=== PATIENT | female | born 2000 | race Two or more races ===

== ENCOUNTER 2020-11-18 10:13 | Outpatient (REF) | payer MEDICAID, SELFPAY | END 2020-11-18 10:14 | disposition home or self-care (01) | LOC: HO.LAB 10:13 | PROVIDERS: Visit Provider Internal Medicine | DX: Z20.822 Contact with and (suspected) exposure to COVID-19 (principal) | CPT/HCPCS: 36415; C9803; U0003; U0005 ==

== ENCOUNTER 2021-01-25 14:15 | Emergency (ER) | payer OTHER, SELFPAY ==
[2021-01-25 14:29] VITALS: BP 104/82; PULSE 99; O2SAT 99
[2021-01-25 14:57] VITALS: BP 116/61; PULSE 87; RESP 16; TEMP 36.7; O2SAT 98; BMI 25.8
--- NOTE | 2021-01-25 15:04 | ECG_ITS ---
Test Reason : ELECTRICAL SHOCK Blood Pressure : / mmHG Vent. Rate : 083 BPM Atrial Rate : 083 BPM P-R Int : 156 ms QRS Dur : 088 ms QT Int : 358 ms P-R-T Axes : 069 090 003 degrees QTc Int : 420 ms Normal sinus rhythm Rightward axis Nonspecific T wave abnormality Borderline ECG No previous ECGs available Referred By: Generic ED Physician Electronically Signed By:ALESSANDRO MEJIA
[2021-01-25 15:26] LABS: MANUAL DIFF FLAG NO
[2021-01-25 15:29] LABS: Basophils Absolute Auto 0.1 X10*3/uL (0.0-0.2); Basophils Percent Auto 0.6 % (0-2); Eosinophils Absolute Auto 0.1 X10*3/uL (0.0-0.4); Eosinophils Percent Auto 0.7 % (0-4); Hematocrit 42.5 % (37-47); Hemoglobin 13.6 g/dl (12.0-16.0); Imm Gran Abs Auto 0.01 X10*3/uL (0.00-0.03); Imm Gran Pct Auto 0.1 % (0.0-0.4); Lymphocytes Absolute Auto 2.5 X10*3/uL (1.2-4.9); Lymphocytes Percent Auto 24.8 % (20-40); Mean Corpuscular Hemoglobin 27.3 pg (27.0-33.0); Mean Corpuscular Volume 85.2 fL (80-98); Mean Platelet Volume 12.9 fL (9.4-12.3); Monocytes Absolute Auto 0.5 X10*3/uL (0.1-1.2); Monocytes Percent Auto 5.3 % (2-11); Neutrophils Absolute Auto 6.9 X10*3/uL (2.0-8.3); Neutrophils Percent Auto 68.5 % (45-73); Platelet Count 213 X10*3/uL (160-400); Red Blood Count 4.99 X10*6/uL (4.20-5.50); Red Cell Distribution Width 12.7 % (11.0-16.0); White Blood Count 10.1 X10*3/uL (4.8-10.8)
[2021-01-25 15:56] LABS: Anion Gap 12 (12-20); Blood Urea Nitrogen 11 mg/dL (9-16); Calcium 9.7 mg/dL (8.4-10.2); Carbon Dioxide 28 mmol/L (22-29); Chloride 103 mmol/L (96-108); Creatinine Clr Calc Pharmacy 130.4; Estimated Glomerular Filt Rate > 60; Glucose Random 82 mg/dL (60-115); Potassium 4.2 mmol/L (3.3-5.1); Sodium 139 mmol/L (135-145)
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
[2021-01-25 16:55] VITALS: BP 107/63; PULSE 88; O2SAT 100
== END 2021-01-25 17:04 | disposition home or self-care (01) ==
PROVIDERS: Emergency Provider Emergency Medicine; PCP Internal Medicine
DX: T25.121A Burn of first degree of right foot, initial encounter (principal); W86.0XXA Exposure to domestic wiring and appliances, initial encounter; Y93.9 Activity, unspecified; Y92.039 Unspecified place in apartment as the place of occurrence of the external cause; Y99.9 Unspecified external cause status
CPT/HCPCS: 36415; 80048; 85025; 93005; 99283

== ENCOUNTER 2021-05-24 17:52 | Emergency (ER) | payer OTHER, SELFPAY ==
--- NOTE | ~2021-05-24 | US_ITS ---
EXAMINATION: US PELVIS, LIMITED/FOLLOW UP CLINICAL INFORMATION: IUD placement COMPARISON: Pelvic ultrasound 10/03/2019 TECHNIQUE: Both transabdominal endovaginal scanning was performed FINDINGS: An retroverted uterus measuring 6.5 x 2.7 x 3.7 cm is present. And IUD is present in the endometrial cavity and good position. The endometrium, where it can be measured is 0.3 cm in thickness and normal. The right ovary measures 3.7 x 1.7 x 1.5 cm for a volume of 5.0 mL and appears normal with normal follicles. Left ovary measures 3.0 x 1.2 x 1.7 cm for a volume of 3.2 mL and also appears normal with normal follicles. No free fluid is seen. US/US pelvic limited IMPRESSION: IUD is in normal position within the uterus.
[2021-05-24 19:48] VITALS: BP 131/77; PULSE 81; RESP 16; TEMP 36.7; O2SAT 100; BMI 25.8
[2021-05-24 20:20] LABS: Basophils Absolute Auto 0.1 X10*3/uL (0.0-0.2); Basophils Percent Auto 0.6 % (0-2); Eosinophils Absolute Auto 0.1 X10*3/uL (0.0-0.4); Eosinophils Percent Auto 0.8 % (0-4); Hematocrit 40.6 % (37-47); Hemoglobin 12.7 g/dl (12.0-16.0); Imm Gran Abs Auto 0.02 X10*3/uL (0.00-0.03); Imm Gran Pct Auto 0.2 % (0.0-0.4); Lymphocytes Absolute Auto 3.3 X10*3/uL (1.2-4.9); Lymphocytes Percent Auto 29.3 % (20-40); MANUAL DIFF FLAG NO; Mean Corpuscular HGB Conc 31.3 g/dl (31.0-35.0); Mean Corpuscular Hemoglobin 26.8 pg (27.0-33.0); Mean Corpuscular Volume 85.7 fL (80-98); Mean Platelet Volume 11.6 fL (9.4-12.3); Monocytes Absolute Auto 0.6 X10*3/uL (0.1-1.2); Monocytes Percent Auto 5.5 % (2-11); Neutrophils Absolute Auto 7.1 X10*3/uL (2.0-8.3); Neutrophils Percent Auto 63.6 % (45-73); Platelet Count 245 X10*3/uL (160-400); Red Blood Count 4.74 X10*6/uL (4.20-5.50); Red Cell Distribution Width 12.8 % (11.0-16.0); White Blood Count 11.2 X10*3/uL (4.8-10.8)
[2021-05-24 20:22] LABS: Appearance Urine CLOUDY; Color Urine YELLOW; Glucose Urine UA NEG (NEG); Leukocyte Esterase Urine NEG (NEG); Nitrite Urine NEG (NEG); UACC Culture Trigger NO; Urine Blood 2+ (NEG); Urine Ketones NEG (NEG); Urine Protein NEG (NEG-TRACE)
[2021-05-24 20:30] LABS: Amorphous Sediment Urine 1+ /LPF; Bacteria Urine 1+ /LPF; Mucus Urine TRACE /LPF; Squamous Epithelial Cell Urine 2+ /LPF; WBC Urine 0 /HPF (0-4)
[2021-05-24 20:35] LABS: Anion Gap 13 (12-20); Blood Urea Nitrogen 13 mg/dL (9-16); Calcium 9.4 mg/dL (8.4-10.2); Carbon Dioxide 27 mmol/L (22-29); Chloride 106 mmol/L (96-108); Creatinine Clr Calc Pharmacy 123.3; Estimated Glomerular Filt Rate > 60; Glucose Random 59 mg/dL (60-115); Sodium 142 mmol/L (135-145)
[2021-05-24 21:07] VITALS: BP 118/69; PULSE 81; RESP 17; TEMP 36.6; O2SAT 100
--- NOTE | 2021-05-24 21:08 | PC.NURSE ---
patient a&ox3, vss, patient awaiting provider, repeat bs 80, will continue to monitor
[2021-05-24 21:13] LABS: Glucose, Whole Blood 80 mg/dL (60-115)
[2021-05-24 22:11] LABS: UPreg QC Valid YES; Urine Pregnancy NEGATIVE (NEGATIVE)
--- NOTE | 2021-05-24 22:45 | PC.NURSE ---
THIS PCT SET UP AND ASSIST PA CORBIN WITH PATIENT PELVIC EXAM .
--- NOTE | 2021-05-24 22:52 | ED.FEMALEGU ---
HPI - Female Genitourinary General Chief complaint: Vaginal Bleeding Stated complaint: vag bleeding Time Seen by Provider: 05/24/21 21:12 Source: patient Mode of arrival: ambulatory Limitations: no limitations History of Present Illness HPI Narrative: 20-year-old female here with complaints of acute on chronic pelvic pain with vaginal bleeding. Patient is without she has had this for about 1-2 months. She describes the pain as bilateral. She tells me that she has spotting which is intermittent. No nausea, vomiting, urinary symptoms. She is having some white discharge. She is sexually active with 1 male partner. She does not use condoms. She denies any history of pelvic inflammatory disease. Denies any history of STDs. Related Data Previous Rx's Medication Instructions Recorded silver sulfadiazine 1 % topical 1 appl TOPICAL BID #50 g 01/25/21 cream (Silvadene) doxycycline monohydrate 100 mg 100 mg PO BID #14 tab 05/24/21 tablet Allergies Allergy/AdvReac Type Severity Reaction Status Date / Time No Known Allergies Allergy Verified 05/24/21 19:56 [No Known Allergies*] Review of Systems Review of Systems: Yes all other systems are reviewed and are negative Constitutional: Constitutional: Reports no additional constitutional complaints, Denies body ache(s), Denies chills, Denies fever(s), Denies headache(s) and Denies weakness Eyes: Eyes: Reports no additional eye complaints and Denies change in vision ENT: Reports system reviewed and no additional complaints, except as documented, Denies dizziness, Denies headache(s), Denies nasal congestion, Denies nasal discharge and Denies neck pain Cardiovascular: Cardiovascular: Reports no additional cardiovascular complaints, Denies chest pain, Denies leg edema and Denies dyspnea Respiratory: Respiratory: Reports no additional respiratory complaints, Denies cough and Denies dyspnea Gastrointestinal: Gastrointestinal: Reports no additional gastrointestinal complaints, Denies abdominal pain, Denies diarrhea, Denies nausea and Denies vomiting Genitourinary: Genitourinary: Reports no additional female genitourinary complaints, Reports abnormal menses, Reports pelvic pain and Denies urinary incontinence Musculoskeletal: Musculoskeletal: Reports no additional musculoskeletal complaints, Denies back pain, Denies arthralgias, Denies joint swelling, Denies neck pain, Denies numbness and Denies tingling Integumentary/Breasts: Skin/Breast: Reports system reviewed and no additional complaints, except as docu and Denies rash Neurologic: Reports system reviewed and no additional complaints, except as documented, Denies Abnormal speech present, Denies dizziness, Denies headache(s), Denies numbness, Denies tingling and Denies weakness PMFSH Past Medical History Attestation statement: The following information was validated with the patient. Source: old records reviewed and nursing notes reviewed Medical History No known health problems Social History Social History Alcohol intake: never Patient Tobacco Use Status: Never used Tobacco Use of substances other than those prescribed or required for medical reasons: No Advance Directives: No Advance Directives Information Provided: Yes Patient : No Physical Exam Vital Signs: Vital Signs: Last Vital Signs Temp 97.9 F 05/24/21 21:07 Pulse 81 05/24/21 21:07 Resp 17 05/24/21 21:07 BP 118/69 05/24/21 21:07 Pulse Ox 100 05/24/21 21:07 Body Mass Index 25.8 Const: General: cooperative, healthy appearing, comfortable and no acute distress Orientation/consciousness: patient oriented x3 Limitations: no limitations HENMT: Head: Yes normal to inspection Ears: hearing grossly normal bilaterally General nose exam: Normal external nose present Face and sinus: Yes normal facial exam Mouth: Normal oral and palatal mucosa present Throat: Yes posterior oropharynx normal Eyes: General: appearance normal, both eyes and all related structures Pupils: Equal, round and reactive pupils present Neck: Neck: Yes normal visual inspection Chest: Chest palpation & inspection: normal inspection of the chest Resp: Effort & Inspection: normal respiratory effort Auscultation: clear to auscultation bilaterally Cardio: Rate: regular rate Rhythm: regular rhythm Peripheral pulses: Peripheral pulses 2+ throughout GI: Inspection: Yes normal to inspection Palpation (GI): Soft to palpation and Tenderness to palpation present (GI) (Suprapubic tenderness on exam no rebound or guarding) Auscultation: normal bowel sounds : Other: nerupa tech present External Female Exam: normal external appearance Speculum Exam - Vagina: normal appearance of the vagina and normal vaginal discharge Speculum Exam - Cervix: normal appearance of the cervix (IUD strings noted ) Bimanual exam- vagina & uterus: normal bimanual exam Bimanual Exam- Adnexa, other: normal adnexae Back/Spine/Pelvis: Thoracic/Lumbar Spine: thoracic and lumbar spine normal to inspection Skin: General skin exam: no rashes or lesions noted Neuro: General: patient oriented x3, no focal motor deficits and normal sensation to monofilament Cranial nerves: Yes Equal, round and reactive pupils present Cognition (Neuro): normal cognition Speech: No Abnormal speech present Gait exam (Neuro): Normal gait present Motor exam (neuro): 5/5 motor strength present throughout Extrem: General: Yes normal to inspection Course Course Course Narrative: 18-year-old female here with intermittent pelvic pain with spotting for the last 1-2 months. Will need UA, urine , pelvic US, labs, pelvic exam 0005-labs unremarkable. Urine is negative. Pelvic ultrasound shows IUD in place. Pelvic exam shows some mild amount of vaginal discharge. No adnexal tenderness or cervical motion tenderness. Less likely PID. Will give ceftriaxone 500 mg IM, course of doxycycline x7 days. Reviewed worrisome signs and symptoms of when to return to the emergency department. Comfortable discharge home. MDM - Female Genitourinary Medical Records Attestation: I reviewed the patient's medical records. Lab Data Attestation: I reviewed the patient's lab results. Result diagrams: 05/24/21 20:14 05/24/21 20:14 Labs: Lab Results 05/24/21 05/24/21 05/24/21 Range/Units 20:11 20:14 20:14 WBC 11.2 H (4.8-10.8) X10*3/uL RBC 4.74 (4.20-5.50) X10*6/uL Hgb 12.7 (12.0-16.0) g/dl Hct 40.6 (37-47) % MCV 85.7 (80-98) fL MCH 26.8 L (27.0-33.0) pg MCHC 31.3 (31.0-35.0) g/dl RDW 12.8 (11.0-16.0) % Plt Count 245 (160-400) X10*3/uL MPV 11.6 (9.4-12.3) fL Immature Gran % (Auto) 0.2 (0.0-0.4) % Neut % (Auto) 63.6 (45-73) % Lymph % (Auto) 29.3 (20-40) % [place] % (Auto) 5.5 (2-11) % Eos % (Auto) 0.8 (0-4) % Baso % (Auto) 0.6 (0-2) % Lymph # (Auto) 3.3 (1.2-4.9) X10*3/uL [place] # (Auto) 0.6 (0.1-1.2) X10*3/uL Eos # (Auto) 0.1 (0.0-0.4) X10*3/uL Baso # (Auto) 0.1 (0.0-0.2) X10*3/uL Abs Immat Gran (auto) 0.02 (0.00-0.03) X10*3/uL Absolute Neuts (auto) 7.1 (2.0-8.3) X10*3/uL Absolute Nucleated RBC 0.000 (0.0-0.012) X10*3/uL Nucleated RBC % (auto) 0.0 (0.0-0.2) /100WBC Sodium 142 (135-145) mmol/L Potassium 4.0 (3.3-5.1) mmol/L Chloride 106 (96-108) mmol/L Carbon Dioxide 27 (22-29) mmol/L Anion Gap 13 (12-20) BUN 13 (9-16) mg/dL Creatinine 0.73 (0.5-1.4) mg/dL Estim Creat Clear Calc 123.3 Estimated GFR > 60 POC Glucose (60-115) mg/dL Random Glucose 59 L* (60-115) mg/dL Calcium 9.4 (8.4-10.2) mg/dL Urine Color YELLOW Urine Appearance CLOUDY Urine pH 8.0 (5.0-8.0) Ur Specific [place] 1.020 (1.005-1.025) Urine Protein NEG (NEG-TRACE) MG/DL Urine Glucose (UA) NEG (NEG) MG/DL Urine Ketones NEG (NEG) MG/DL Urine Blood 2+ H (NEG) Urine Nitrite NEG (NEG) Ur Leukocyte Esterase NEG (NEG) Urine RBC 5-9 H (0) /HPF Urine WBC 0 (0-4) /HPF Ur Squamous Epith Cells 2+ /LPF Amorphous Sediment 1+ /LPF Urine Bacteria 1+ /LPF Urine Mucus TRACE /LPF Urine Test (NEGATIVE) 05/24/21 05/24/21 Range/Units 21:05 21:59 WBC (4.8-10.8) X10*3/uL RBC (4.20-5.50) X10*6/uL Hgb (12.0-16.0) g/dl Hct (37-47) % MCV (80-98) fL MCH (27.0-33.0) pg MCHC (31.0-35.0) g/dl RDW (11.0-16.0) % Plt Count (160-400) X10*3/uL MPV (9.4-12.3) fL Immature Gran % (Auto) (0.0-0.4) % Neut % (Auto) (45-73) % Lymph % (Auto) (20-40) % [place] % (Auto) (2-11) % Eos % (Auto) (0-4) % Baso % (Auto) (0-2) % Lymph # (Auto) (1.2-4.9) X10*3/uL [place] # (Auto) (0.1-1.2) X10*3/uL Eos # (Auto) (0.0-0.4) X10*3/uL Baso # (Auto) (0.0-0.2) X10*3/uL Abs Immat Gran (auto) (0.00-0.03) X10*3/uL Absolute Neuts (auto) (2.0-8.3) X10*3/uL Absolute Nucleated RBC (0.0-0.012) X10*3/uL Nucleated RBC % (auto) (0.0-0.2) /100WBC Sodium (135-145) mmol/L Potassium (3.3-5.1) mmol/L Chloride (96-108) mmol/L Carbon Dioxide (22-29) mmol/L Anion Gap (12-20) BUN (9-16) mg/dL Creatinine (0.5-1.4) mg/dL Estim Creat Clear Calc Estimated GFR POC Glucose 80 (60-115) mg/dL Random Glucose (60-115) mg/dL Calcium (8.4-10.2) mg/dL Urine Color Urine Appearance Urine pH (5.0-8.0) Ur Specific [place] (1.005-1.025) Urine Protein (NEG-TRACE) MG/DL Urine Glucose (UA) (NEG) MG/DL Urine Ketones (NEG) MG/DL Urine Blood (NEG) Urine Nitrite (NEG) Ur Leukocyte Esterase (NEG) Urine RBC (0) /HPF Urine WBC (0-4) /HPF Ur Squamous Epith Cells /LPF Amorphous Sediment /LPF Urine Bacteria /LPF Urine Mucus /LPF Urine Test NEGATIVE (NEGATIVE) Imaging Data US - abdomen: Attestation: I personally reviewed and interpreted this imaging study as follows: Radiologist's impression: FINDINGS: An retroverted uterus measuring 6.5 x 2.7 x 3.7 cm is present. And IUD is present in the endometrial cavity and good position. The endometrium, where it can be measured is 0.3 cm in thickness and normal. The right ovary measures 3.7 x 1.7 x 1.5 cm for a volume of 5.0 mL and appears normal with normal follicles. Left ovary measures 3.0 x 1.2 x 1.7 cm for a volume of 3.2 mL and also appears normal with normal follicles. No free fluid is seen. US/US pelvic limited IMPRESSION: IUD is in normal position within the uterus.? ? Discharge Plan Discharge Clinical Impression: Dysfunctional uterine bleeding Patient Disposition: Home, Self-Care Instructions: Dysfunctional Uterine Bleeding (ED) Additional Instructions: Your IUD is in place We sent STD testing. You are being treated prophylactically Lab work is normal Urine test is negative for Call obstetrics/gynecology nurse for repeat exam Prescriptions: New doxycycline monohydrate 100 mg tablet 100 mg PO BID Qty: 14 RF: 0 No Action silver sulfadiazine [Silvadene] 1 % cream 1 appl topical BID Qty: 50 RF: 0 Referrals: Santhosh Prajapati MD [Physician] - 2 days Stand Alone Forms: Work/School Release Print Language: Haitian
[2021-05-25] MEDS: cefTRIAXone sodium 500 MG, Lidocaine HCl 1 % MPF 1 ML IM (00:30)
[2021-05-25 00:32] VITALS: BP 111/69; PULSE 75; RESP 18; TEMP 36.9; O2SAT 100
[2021-05-25 09:51] LABS: BV Int Neg Control Negative (Negative); BV Int Pos Control Positive (Positive)
[2021-05-25 09:52] LABS: CT PCR NOT DETECTED (Not Detect.); NG PCR NOT DETECTED (Not Detect.)
== END 2021-05-25 00:43 | disposition home or self-care (01) ==
PROVIDERS: Nurse Practitioner Family; Emergency Provider Emergency Medicine Emergency Medical Services; PCP Internal Medicine
DX: N76.0 Acute vaginitis (principal); N93.8 Other specified abnormal uterine and vaginal bleeding; Z79.899 Other long term (current) drug therapy; Z20.2 Contact with and (suspected) exposure to infections with a predominantly sexual mode of transmission
CPT/HCPCS: 36415; 76857; 80048; 81001; 81025; 82947; 85025; 87480; 87491; 87510; 87591; 87660; 96372; 99284; J0696

== ENCOUNTER 2022-03-23 07:59 | Emergency (ER) | payer OTHER, SELFPAY ==
[2022-03-23 08:13] VITALS: BP 127/70; PULSE 95; RESP 18; TEMP 37.1; O2SAT 98; BMI 29.0
[2022-03-23 08:31] LABS: Strep A Nucleic Acid Negative (Negative)
[2022-03-23 08:44] LABS: COVID-19 Test Negative (Negative)
--- NOTE | 2022-03-23 10:47 | ED.GENADULT ---
HPI - General Adult General Chief complaint: General Medical Stated complaint: throat pain fever nausea Time Seen by Provider: 03/23/22 09:16 Source: patient Mode of arrival: ambulatory History of Present Illness HPI narrative: 21-year-old female with no significant past medical history presenting to the ED complaining of subjective fever, chills, myalgias/body aches, and sore throat x4 days. Reports pain with swallowing. Denies cough, ear pain, abdominal pain, nausea/vomiting, SOB/CP. Traveled to [place] last month Onset (ago): day(s) Related Data Previous Rx's Medication Instructions Recorded silver sulfadiazine 1 % topical 1 appl topical BID #50 grams 01/25/21 cream (Silvadene) doxycycline monohydrate 100 mg 100 mg PO BID #14 tabs 05/24/21 tablet metronidazole 500 mg tablet 500 mg PO BID 7 days #14 tabs 05/27/21 amoxicillin 875 mg-potassium 1 tab PO BID 7 days #14 tabs 03/23/22 clavulanate 125 mg tablet Allergies Allergy/AdvReac Type Severity Reaction Status Date / Time No Known Allergies Allergy Verified 05/24/21 19:56 [No Known Allergies*] Review of Systems Review of Systems: Constitutional: + Fever, + Chills ENT/Mouth: No Ear Pain, No Nasal Congestion, No Sinus Pain, No Hoarseness, + sore throat, No Rhinorrhea, No Swallowing Difficulty Cardiovascular: No Chest Pain, No SOB Respiratory: No Cough, No Sputum, No Wheezing Gastrointestinal: No Nausea, No Vomiting, No Diarrhea, No Constipation, No Abdominal pain Genitourinary: No Dysuria, No Urinary Frequency, No Hematuria, No Flank Pain Musculoskeletal: No joint pain, + Myalgias, No Joint Swelling Skin: No Skin Lesions, No rash Neuro: No Weakness, No Numbness, No Paresthesias Yes all other systems are reviewed and are negative Constitutional: Constitutional: Reports as per [facility] Past Medical History Attestation statement: The following information was validated with the patient. Medical History No known health problems Social History Social History Alcohol intake: never Patient Tobacco Use Status: Never used Tobacco Advance Directives: No Advance Directives Information Provided: Yes Physical Exam ED Vital Signs: Vital Signs - 24 hr 03/23/22 08:13 Temperature 98.7 F Pulse Rate 95 Respiratory Rate 18 Blood Pressure 127/70 Pulse Oximetry 98 Oxygen Delivery Method Room Air BMI result Body Mass Index 29.0 Const General: cooperative, healthy appearing and no acute distress Orientation/consciousness: patient oriented x3 Limitations: no limitations HENMT Head: Yes normal to inspection and Yes atraumatic Ears: hearing grossly normal bilaterally, TM's normal bilaterally and mastoids normal General nose exam: Normal external nose present Face and sinus: Yes normal facial exam Throat: Yes uvula midline, No peritonsillar mass, Yes posterior oropharynx abnormal (+ erythematous with small erythematous papules to posterior oropharynx), No uvula laterally displaced and No uvular edema Eyes General: appearance normal, both eyes and all related structures EOM: EOMs intact bilaterally Neck Other: + submandibular lymphadenopathy Neck: Yes normal visual inspection, Yes no meningeal signs, Yes supple and No anterior neck swelling Resp Effort & Inspection: normal respiratory effort, no respiratory distress and no stridor Auscultation: clear to auscultation bilaterally Cardio Rate: regular rate Heart sounds: S1 normal heart sound present and S2 normal heart sound present Skin Rashes: no rashes Wounds: no wounds Neuro General: patient oriented x3, tone normal and no meningeal signs Gait exam (Neuro): Normal gait present Extrem General: Yes normal to inspection Course Course Course Narrative: COVID-19 and rapid strep negative. >> will treat empirically with p.o. antibiotics due to symptomatology/physical exam. Patient is in agreement with plan Medical Decision Making MDM Narrative Medical decision making narrative: 21-year-old female with no significant past medical history presenting to the ED complaining of subjective fever, chills, myalgias/body aches, and sore throat x4 days. On exam vital signs stable, NAD, nontoxic appearing, physical exam as above. Concern for strep pharyngitis vs viral syndrome. 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 Lab Data Lab results reviewed: Yes I reviewed the patient's lab results. Labs: Lab Results 03/23/22 03/23/22 Range/Units 08:15 08:15 COVID-19 (SEKOU) Negative (Negative) COVID-19 Clin Com See Note S. pyogenes GrpA GREG Negative (Negative) Discharge Plan Discharge Clinical Impression: Pharyngitis Patient Disposition: Home, Self-Care Instructions: Pharyngitis (ED) Additional Instructions: You have a throat infection, Augmentin is an antibiotic please take as prescribed. you tested negative for COVID-19 and strep throat today. Gargle with warm salt water. Take Tylenol and Motrin at home as needed. If symptoms persist or worsen, you fever unresolved medications return to the emergency department Tiene emerita infecci?n de garganta, Augmentin es un antibi?manuel, t?jolley seg?n lo prescrito. milana negativo para COVID-19 y faringitis estreptoc?cica hoy. [place] g?rgaras con agua tibia con woo. [place] Tylenol y Motrin en casa seg?n sea necesario. Si los s?ntomas persisten o empeoran, tiene fiebre medicamentos no resueltos regrese al departamento de emergencias Prescriptions: New amoxicillin-pot clavulanate 875-125 mg tablet 1 tab PO BID 7 Days Qty: 14 0RF No Action silver sulfadiazine [Silvadene] 1 % cream 1 appl topical BID Qty: 50 0RF Rx Instructions: apply a 1.5 mm thickness doxycycline monohydrate 100 mg tablet 100 mg PO BID Qty: 14 0RF metronidazole 500 mg tablet 500 mg PO BID 7 Days Qty: 14 0RF Referrals: Sveta Ortzi MD [Primary Care Provider] - 1 week Interventions: ED Discharge Assessment Last Done: 03/23/22 11:00 Discharge Date/Time: 03/23/22 11:01 Print Language: Samoan
== END 2022-03-23 11:01 | disposition home or self-care (01) ==
PROVIDERS: Emergency Provider Emergency Medicine Emergency Medical Services; PCP Internal Medicine
DX: J02.9 Acute pharyngitis, unspecified (principal); Z20.822 Contact with and (suspected) exposure to COVID-19
CPT/HCPCS: 36415; 87635; 87651; 99283

== ENCOUNTER 2022-08-09 13:46 | Emergency (ER) | payer OTHER, SELFPAY ==
--- NOTE | ~2022-08-09 | CT_ITS ---
EXAMINATION: CT ABDOMEN AND PELVIS WITHOUT CONTRAST CLINICAL INFORMATION: Right flank pain COMPARISON: None TECHNIQUE: Multidetector volumetric imaging was performed from the superior aspect of the liver through the pubic symphysis. Sagittal and coronal reformatted images were obtained on the technologist's workstation. This CT examination was performed using dose optimization techniques as appropriate, variously including the following: *Automated exposure control *Adjustment of mA and/or kV according to patient size (this includes techniques or standardized protocols for targeted exams where dose is matched to indication/reason for exam; i.e. extremities or head) *Use of iterative reconstruction technique DLP: 551 mGy-cm FINDINGS: LUNG BASES: The visualized lung bases are unremarkable. LIVER, GALLBLADDER, AND BILIARY TREE: There are a few punctate calcifications in segment 6 of the liver of doubtful clinical significance. These may represent calcified granulomas although are uncertain etiology. The gallbladder is unremarkable with no evidence of radiopaque gallstones, gallbladder wall thickening, or obvious pericholecystic inflammatory changes. PANCREAS: Unremarkable. SPLEEN: Unremarkable. ADRENAL GLANDS: Unremarkable. KIDNEYS AND URETERS: The kidneys are normal in size, shape, and attenuation. No hydronephrosis, hydroureter, or calculi seen. No perinephric stranding. BLADDER: Unremarkable. GASTROINTESTINAL TRACT: The small and large bowel are unremarkable. The appendix is unremarkable. ABDOMINAL WALL: No significant hernia is appreciated. LYMPH NODES: Normal. VASCULAR: Unremarkable. PELVIC VISCERA: There is an intrauterine device. OSSEOUS STRUCTURES: Unremarkable. CT/CT abdomen pelvis wo IV con IMPRESSION: No focal inflammatory process or obstruction. Normal appendix. No hydronephrosis or nephrolithiasis. Fleischner guidelines were followed.
[2022-08-09 15:36] VITALS: BP 103/75; PULSE 88; RESP 18; TEMP 36.4; O2SAT 99; BMI 26.6
--- NOTE | 2022-08-09 15:42 | ED_ITS ---
HPI - Abdominal Pain General Chief Complaint: Abdominal Pain Stated Complaint: Flu Like Symptoms Related Data Previous Rx's Medication Instructions Recorded silver sulfadiazine 1 % topical 1 appl topical BID #50 grams 01/25/21 cream (Silvadene) doxycycline monohydrate 100 mg 100 mg PO BID #14 tabs 05/24/21 tablet metronidazole 500 mg tablet 500 mg PO BID 7 days #14 tabs 05/27/21 amoxicillin 875 mg-potassium 1 tab PO BID 7 days #14 tabs 03/23/22 clavulanate 125 mg tablet Allergies Allergy/AdvReac Type Severity Reaction Status Date / Time No Known Allergies Allergy Verified 08/09/22 15:35 [No Known Allergies*] FOR[facility]LY [facility] Past Medical History Medical History No known health problems Social History Social History Alcohol intake: never Patient Tobacco Use Status: Never used Tobacco Advance Directives: No Advance Directives Information Provided: Yes Physical Exam ED Vital Signs: Vital Signs - 24 hr 08/09/22 15:36 Temperature 97.5 F Pulse Rate 88 Respiratory Rate 18 Blood Pressure 103/75 Pulse Oximetry 99 Oxygen Delivery Method Room Air BMI result Body Mass Index 26.6 Course Course Course Narrative: rme patient is a 21-year-old female present today with having 1 week history of some nausea some diarrhea some generalized malaise now is having abdominal pain on the right side radiating to the right flank. Patient denies any fever chills. No history kidney stones in the past. Positive mild headache. Positive weakness. A RSV flu COVID was sent. Urine ordered. test ordered. CT scan of the abdomen to rule out kidney stone ordered. Patient placed back in the waiting room Discharge Plan Discharge Clinical Impression: Abdominal pain Patient Disposition: Elopement Prescriptions: No Action silver sulfadiazine [Silvadene] 1 % cream 1 appl topical BID Qty: 50 0RF Rx Instructions: apply a 1.5 mm thickness doxycycline monohydrate 100 mg tablet 100 mg PO BID Qty: 14 0RF metronidazole 500 mg tablet 500 mg PO BID 7 Days Qty: 14 0RF amoxicillin-pot clavulanate 875-125 mg tablet 1 tab PO BID 7 Days Qty: 14 0RF Interventions: ED Discharge Assessment Last Done: 08/09/22 21:35 Discharge Date/Time: 08/09/22 21:36
[2022-08-09 16:28] LABS: MANUAL DIFF FLAG NO
[2022-08-09 16:31] LABS: Basophils Percent Auto 0.5 % (0-2); Eosinophils Percent Auto 0.4 % (0-4); Hematocrit 42.4 % (37.0-47.0); Hemoglobin 13.5 g/dl (12.0-16.0); Imm Gran Abs Auto 0.02 X10*3/uL (0.00-0.03); Imm Gran Pct Auto 0.2 % (0.0-0.4); Lymphocytes Absolute Auto 2.1 X10*3/uL (1.2-4.9); Lymphocytes Percent Auto 24.8 % (20-40); Mean Corpuscular HGB Conc 31.8 g/dl (31.0-35.0); Mean Corpuscular Hemoglobin 26.3 pg (27.0-33.0); Mean Corpuscular Volume 82.7 fL (80.0-98.0); Mean Platelet Volume 11.7 fL (9.4-12.3); Monocytes Absolute Auto 0.4 X10*3/uL (0.1-1.2); Neutrophils Absolute Auto 5.8 x10*3/uL (2.0-8.3); Neutrophils Percent Auto 69.1 % (45-73); Platelet Count 240 X10*3/uL (160-400); Red Blood Count 5.13 X10*6/uL (4.20-5.50); Red Cell Distribution Width 12.5 % (11.0-16.0); White Blood Count 8.4 X10*3/uL (4.8-10.8)
[2022-08-09 16:38] LABS: Appearance Urine Clear; Color Urine Dark Yellow; Glucose Urine UA Negative (Negative); Leukocyte Esterase Urine Negative (Negative); Nitrite Urine Negative (Negative); Specific Gravity - Urine >= 1.030 (1.005-1.025); UMIC TRIGGER UACC YES; UPreg QC Valid YES; Urine Blood Negative (Negative); Urine Ketones 15 mg/dL (Negative); Urine Pregnancy NEGATIVE (NEGATIVE); Urine Protein 30 (1+) mg/dL (Neg-Trace)
[2022-08-09 16:44] LABS: Bacteria Urine Trace (None Seen); Hyaline Casts Urine 0-2 /LPF (0-2); RBC Urine 0-2 /HPF (0-2); UACC Culture Trigger YES
[2022-08-09 16:48] LABS: Alanine Aminotransferase 17 U/L (0-31); Albumin Level 4.3 g/dL (3.5-5.0); Alkaline Phosphatase 81 U/L (39-117); Anion Gap 10 (12-20); Aspartate Amino Transferase 16 U/L (5-31); Bilirubin Direct 0.2 mg/dL (0.0-0.5); Bilirubin Total 0.5 mg/dL (0.0-1.0); Blood Urea Nitrogen 10 mg/dL (9-16); Carbon Dioxide 30 mmol/L (22-29); Chloride 105 mmol/L (96-108); Creatinine Clr Calc Pharmacy 122.4; Estimated Glomerular Filt Rate > 60; Glucose Random 93 mg/dL (60-115); Lipase 15 U/L (8-78); Sodium 141 mmol/L (135-145); Total Protein 7.6 g/dL (6.5-8.0)
[2022-08-09 17:09] LABS: Influenza A PCR NEGATIVE (Negative); Influenza B PCR NEGATIVE (Negative); Resp Syncy Virus RNA Qual PCR NEGATIVE (Negative); SARS COV2 PCR INHOUSE NEGATIVE (Negative)
== END 2022-08-09 21:36 | disposition left against medical advice (07) ==
PROVIDERS: Emergency Medicine Emergency Medical Services; Emergency Provider Emergency Medicine; PCP Internal Medicine
DX: R50.9 Fever, unspecified (principal); R10.9 Unspecified abdominal pain; Z79.899 Other long term (current) drug therapy; Z20.822 Contact with and (suspected) exposure to COVID-19
CPT/HCPCS: 0241U; 36415; 74176; 80048; 80076; 81001; 81025; 83690; 85025; 87086; 99282; 99284

== ENCOUNTER 2024-06-03 08:38 | Emergency (ER) | payer OTHER, SELFPAY ==
[2024-06-03 08:42] VITALS: BP 112/67; PULSE 85; RESP 18; TEMP 36.8; O2SAT 97; BMI 30.4
[2024-06-03 09:21] LABS: COVID-19 Test Negative (Negative); IDNOW Serial# 08D9AD1C
--- NOTE | 2024-06-03 10:02 | ED.GENADULT ---
HPI - General Adult General Chief complaint: Upper Respiratory Symptoms Stated complaint: flu symptons Time Seen by Provider: 06/03/24 09:34 Source: patient Mode of arrival: ambulatory Limitations: no limitations History of Present Illness ED Provider: Lester Tolliver PA-C HPI narrative: 23-year-old female no past medical history presents to the ED for URI symptoms consists of diarrhea, coughing, fever, chills, body aches, and nausea. Denies any abdominal pain. Patient denies any dysuria, hematuria, flank pain, shortness of breath, pleurisy, coughing up blood. Patient states having symptoms for the past 4 days. Related Data Previous Rx's ?Medication ?Instructions ?Recorded silver sulfadiazine 1 % topical 1 appl topical BID #50 grams 01/25/21 cream (Silvadene) doxycycline monohydrate 100 mg 100 mg PO BID #14 tabs 05/24/21 tablet metronidazole 500 mg tablet 500 mg PO BID 7 days #14 tabs 05/27/21 amoxicillin 875 mg-potassium 1 tab PO BID 7 days #14 tabs 03/23/22 clavulanate 125 mg tablet benzonatate 200 mg capsule 200 mg PO TID PRN cough 5 days #15 06/03/24 caps Allergies Allergy/AdvReac Type Severity Reaction Status Date / Time No Known Allergies Allergy Verified 06/03/24 08:43 [No Known Allergies*] Review of Systems Review of Systems: cough, diarrhea, nuasea, bodyaches, fever, chills Yes all other systems are reviewed and are negative PMFSH Past Medical History Medical History No known health problems Social History Social History Alcohol intake: never Patient Tobacco Use Status: Never used Tobacco Advance Directives: No Do you have a plan to hurt others: No Plan Physical Exam ED Vital Signs: Vital Signs - 24 hr 06/03/24 08:42 06/03/24 10:40 Temperature 98.2 F 98.2 F Pulse Rate 85 85 Respiratory Rate 18 18 Blood Pressure 112/67 112/67 Pulse Oximetry 97 97 Oxygen Delivery Method Room Air Room Air BMI result Body Mass Index 30.4 Const General: cooperative, healthy appearing, comfortable, no acute distress, well developed, alert, awake and Physically active Orientation/consciousness: patient oriented x3 [facility] Head: Yes normal to inspection, Yes No palpable skull fracture present, Yes normocephalic and Yes atraumatic Ears: hearing grossly normal bilaterally, external ears normal, TM's normal bilaterally, TM normal on the right, TM normal on the left, EAC's normal, mastoids normal and no periauricular adenopathy Throat: Yes posterior oropharynx normal, Yes tonsils normal and Yes uvula midline Eyes General: appearance normal, both eyes and all related structures Neck Neck: Yes normal visual inspection, Yes full ROM, Yes no lymphadenopathy, Yes no meningeal signs, Yes trachea midline, Yes supple, No anterior neck swelling and No tender Chest Chest palpation & inspection: normal inspection of the chest and normal palpation of entire chest wall Resp Effort & Inspection: normal respiratory effort and able to speak in complete sentences Auscultation: clear to auscultation bilaterally Cardio Jugular venous distension: no JVD Heart sounds: S1 normal heart sound present and S2 normal heart sound present GI Inspection: Yes normal to inspection Palpation (GI): Soft to palpation, not firm, nontender, no guarding and not rigid General: No CVA tenderness and Yes no CVA tenderness Back/Spine/Pelvis Back: no CVA tenderness, No CVA tenderness and No back tenderness Skin General skin exam: no rashes or lesions noted, elasticity normal and turgor normal Neuro General: patient oriented x3, gait normal, tone normal, moves all extremities, Normal light touch and pain sensation, no meningeal signs, no focal motor deficits, CN's II-XI intact bilaterally and normal sensation to monofilament Extrem General: Yes normal to inspection, Yes full ROM and Yes capillary refill normal Psych Appearance: grossly normal, well kempt and not disheveled Medical Decision Making Medical Decision Making MDM Narrative: 23-year-old female healthy with no past medical history presents to ED for URI viral-like syndrome. COVID-19 swab negative. It was discussed for patient to test for RSV and flu but patient would prefer to go home. Presently not suspecting pneumonia, , PE, hypoxia, respiratory distress, myocardial infarction, chf, myocarditis, appendicitis, UTI, colitis, pancreatitis, cholecysititis or strep. patient denies being . Patient explained on rest, oral hydration. Patient was explained worrisome signs and informed to return to the ED immediately if she has them. Presently patient is stable and not hypoxic. Patient well-appearing. Differential Diagnosis Differential Diagnoses: The differential diagnosis associated with the presentation includes (COVID, RSV, influenza) Admission/Observation Consideration of admission/observation: Escalation of care including admission/observation considered Lab Data MDM Lab Attestation statement: I reviewed the patient's lab results. Labs: Lab Results 06/03/24 Range/Units 08:58 COVID-19 ([facility]) Negative (Negative) COVID-19 Clin Com See Note Independent Historian Clinical information obtained from an independent historian. History obtained from or confirmed by: Other (patient) External Record Review External record reviewed: Other (prior visits) Prescription Management I considered prescription management with: Other (cough) Discharge Plan Discharge Clinical Impression: Upper respiratory infection Patient Disposition: Home, Self-Care Instructions: Upper Respiratory Infection (ED) Additional Instructions: Return to the ED immediately for any chest pain, shortness of breath, leg swelling, calf pain, chest pain on inspiration intractable fever, weakness, dizziness, coughing up large amounts of blood, abdominal pain, dysuria, hematuria, flank pain, intractable nausea, profuse vomiting, or any other concerning symptoms. Recommend follow-up with primary care provider Prescriptions: New benzonatate 200 mg capsule 200 mg PO TID PRN (Reason: cough) 5 Days Qty: 15 0RF No Action silver sulfadiazine [Silvadene] 1 % cream 1 appl topical BID Qty: 50 0RF Rx Instructions: apply a 1.5 mm thickness doxycycline monohydrate 100 mg tablet 100 mg PO BID Qty: 14 0RF metronidazole 500 mg tablet 500 mg PO BID 7 Days Qty: 14 0RF amoxicillin-pot clavulanate 875-125 mg tablet 1 tab PO BID 7 Days Qty: 14 0RF Stand Alone Forms: Work/School Release Interventions: ED Discharge Assessment Last Done: 06/03/24 10:40 Discharge Date/Time: 06/03/24 10:40 Print Language: Lithuanian
[2024-06-03 10:40] VITALS: BP 112/67; PULSE 85; RESP 18; TEMP 36.8; O2SAT 97
== END 2024-06-03 10:40 | disposition home or self-care (01) ==
PROVIDERS: Emergency Provider Emergency Medicine; PCP Internal Medicine
DX: J06.9 Acute upper respiratory infection, unspecified (principal); R05.9 Cough, unspecified; Z11.52 Encounter for screening for COVID-19
CPT/HCPCS: 87635; 99282; 99283

== ENCOUNTER 2024-07-16 13:00 | Outpatient (AMB) | payer OTHER, SELFPAY ==
[2024-07-16 13:12] VITALS: BP 116/68; BMI 30.9
--- NOTE | 2024-07-16 13:12 | MHC.OFFVIS ---
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 After she had her baby in 2018 at [facility] she moved to [place] for couple of years and now she is back but she has not been in for curatorial assistant examined at lose 6 years she had a Mirena inserted sometime soon after her baby was born in 2018 and she is sexually active but she is not interested in having another baby at this time. She breastfed that baby girl for about 3-4 years. [facility] Medical History No known health problems Social History Alcohol intake: never Patient Tobacco Use Status: Never used Tobacco Female Reproductive History Menstrual Age of Menarche: 12 Duration of menses: other control method: progestin IUCD Total pregnancies: 1 Full term: 1 History of abnormal pap smear: No (no previous pap) Physical Exam Vital Signs: Last Vital Signs BP 116/68 07/16/24 13:12 BMI result Body Mass Index 30.9 Const General: healthy appearing, comfortable, no acute distress, well developed and alert Nutritional Appearance: average body habitus Orientation/consciousness: patient oriented x3 Limitations: no limitations HEENT Head: Yes normocephalic Neck Neck: Yes normal visual inspection Chest Chest palpation & inspection: normal inspection of the chest Breast/axilla inspection: normal inspection of the breasts and normal inspection of the axillae Breast/axilla palpation: normal palpation of the breasts and normal palpation of the axillae Resp Effort & Inspection: normal respiratory effort GI Inspection: Yes normal to inspection, No Abdominal wall edema and No distended Palpation (GI): Soft to palpation and nontender Other: External exam within normal limits vagina pink and moist there is a white homogeneous liquidy discharge Cervix multiparous pink smooth with Mirena string visible. Cervix is long close thick mobile firm uterus small midposition to anteverted firm mobile nontender. Adnexa nontender Fairly weak tone with Kegel instructed and had her practice 3 successful Kegel's and recommend that she do them multiple times a day at home. General: Yes bladder normal to palpation External Female Exam: normal external appearance and normal appearance of the urethra Speculum Exam - Vagina: normal appearance of the vagina, normal palpation and normal vaginal discharge Speculum Exam - Cervix: normal appearance of the cervix, normal palpation and nontender Bimanual exam- vagina & uterus: normal bimanual exam, normal palpation, uterine size normal, bladder normal to palpation, consistency normal, normal palpation, uterine mobility normal, uterine shape normal, No Cervical tenderness present, non-tender and no cervical motion tenderness Bimanual Exam- Adnexa, other: normal adnexae, no masses, normal and No adnexal tenderness Neuro General: patient oriented x3 Assessment & Plan Assessment & Plan (1) Cervical cancer screening: Code(s): Z12.4 - Encounter for screening for malignant neoplasm of cervix Category: Medical (2) Encounter for screening examination for sexually transmitted disease: Code(s): Z11.3 - Encounter for screening for infections with a predominantly sexual mode of transmission Category: Medical (3) Breast cancer screening: Code(s): Z12.39 - Encounter for other screening for malignant neoplasm of breast Category: Medical (4) control counseling: Code(s): Z30.09 - Encounter for other general counseling and advice on contraception Category: Medical (5) Presence of 52 mg levonorgestrel-releasing intrauterine device (IUD): Code(s): Z97.5 - Presence of (intrauterine) contraceptive device Category: Social Hx (6) Well woman exam with routine gynecological exam: Code(s): Z01.419 - Encounter for gynecological examination (general) (routine) without abnormal findings Category: Medical (7) Pelvic floor 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 Also discussed the initial recommendations to use the Mirena IUD for contraception for up to 5 years. Some recent studies are indicating that it can be used for longer and there are current recommendations saying it can be left for longer period of time when used for contraception, up to 8 years and it can be used for 5 years when it is being used to help control abnormal bleeding. However, many women, whose periods went away for the 1st few years of having the Mirena, have reported that around 4-1/2-5 years into its use, they have noticed return of full menses, and return of ovulatory signs and symptoms midcycle. This varies from women to woman. In addition women who have had it to help control bleeding, have had amenorrhea for very many years and sometimes have opted to leave it in longer if they are still not bleeding, when they are not concerned about contraception. I recommend the she pay attention to how the effects are acting on her own body, and cycles, and always take care to be aware of this. And if she is using it for contraception, and the consequences of conceiving would be great for her, she would be nielson to pay attention to this, and not depend on it, if she has a return to fertility. And if she desires replacement, she should return for replacement at the appropriate time. After discussing the variable length of time that can be used as above and that it is her decision if she really is very clear she does not want to have another baby now she changed her mind and decided that she actually would like to replace it now so she is sure she does not have a baby by accident in the near future. She is not getting regular periods but occasionally she does spot and cramp like. If she does have that experience that would be an optimal time to replace it as it will be less uncomfortable but her cervix is not tightly closed and probably would not be too difficult removal and insertion process. Given that she is not getting regular menses yet she may need to just call when it is convenient to her but I did tell her that if she gets some spotting or cramping that is an ideal time and we would wanted try to schedule replacement for the next day. Orders: Orders Hepatitis B Surface Antigen Today Z01.419 - Encounter for gynecological examination (general) (routine) without abnormal findings, Z11.3 - Encounter for screening for infections with a predominantly sexual mode of transmission, Z12.39 - Encounter for other screening for malignant neoplasm of breast, Z12.4 - Encounter for screening for malignant neoplasm of cervix, Z30.09 - Encounter for other general counseling and advice on contraception, Z97.5 - Presence of (intrauterine) contraceptive device Hepatitis C Antibody Today Z01.419 - Encounter for gynecological examination (general) (routine) without abnormal findings, Z11.3 - Encounter for screening for infections with a predominantly sexual mode of transmission, Z12.39 - Encounter for other screening for malignant neoplasm of breast, Z12.4 - Encounter for screening for malignant neoplasm of cervix, Z30.09 - Encounter for other general counseling and advice on contraception, Z97.5 - Presence of (intrauterine) contraceptive device HIV Ab/Ag Today Z01.419 - Encounter for gynecological examination (general) (routine) without abnormal findings, Z11.3 - Encounter for screening for infections with a predominantly sexual mode of transmission, Z12.39 - Encounter for other screening for malignant neoplasm of breast, Z12.4 - Encounter for screening for malignant neoplasm of cervix, Z30.09 - Encounter for other general counseling and advice on contraception, Z97.5 - Presence of (intrauterine) contraceptive device Syphilis Screen Today Z01.419 - Encounter for gynecological examination (general) (routine) without abnormal findings, Z11.3 - Encounter for screening for infections with a predominantly sexual mode of transmission, Z12.39 - Encounter for other screening for malignant neoplasm of breast, Z12.4 - Encounter for screening for malignant neoplasm of cervix, Z30.09 - Encounter for other general counseling and advice on contraception, Z97.5 - Presence of (intrauterine) contraceptive device Medications: Discontinued silver sulfadiazine 1% (Silvadene) apply a 1.5 mm thickness Discontinued Reason: Patient Completed Course 1 appl topical BID 50 grams 0RF doxycycline monohydrate Discontinued Reason: Patient Completed Course 100 mg PO BID 14 tabs 0RF metronidazole Discontinued Reason: Patient Completed Course 500 mg PO BID 7 days 14 tabs 0RF amoxicillin-pot clavulanate 875-125 mg Discontinued Reason: Patient Completed Course 1 tab PO BID 7 days 14 tabs 0RF benzonatate Discontinued Reason: Patient Completed Course 200 mg PO TID 5 days PRN 15 caps 0RF cough Coding Level of Care Code New Pt Prev Care [id number] Diagnoses Cervical cancer screening Z12.4 Encounter for screening examination for sexually transmitted disease Z11.3 Breast cancer screening Z12.39 control counseling Z30.09 Presence of 52 mg levonorgestrel-releasing intrauterine device (IUD) Z97.5 Well woman exam with routine gynecological exam Z01.419 Pelvic floor weakness in female N81.89
== END 2024-07-16 14:06 | disposition home or self-care (01) ==
PROVIDERS: PCP Internal Medicine; Visit Provider Advanced Practice Midwife
DX: Z01.419 Encounter for gynecological examination (general) (routine) without abnormal findings (principal); Z12.4 Encounter for screening for malignant neoplasm of cervix; Z11.3 Encounter for screening for infections with a predominantly sexual mode of transmission; Z12.39 Encounter for other screening for malignant neoplasm of breast; Z30.09 Encounter for other general counseling and advice on contraception; Z97.5 Presence of (intrauterine) contraceptive device; N81.89 Other female genital prolapse
CPT/HCPCS: 99385

== ENCOUNTER 2024-07-16 13:00 | Outpatient (REF) | payer OTHER, SELFPAY ==
[2024-07-17 04:10] LABS: CT PCR DETECTED (Not Detect.); NG PCR NOT DETECTED (Not Detect.)
[2024-07-17 12:05] LABS: Bacterial Vaginosis PCR NEGATIVE (Negative); Candida Group PCR DETECTED (Not Detect); Candida glab krusei PCR NOT DETECTED (Not Detect); Trichomonas vaginalis PCR NOT DETECTED (Not Detect)
== END 2024-07-16 13:01 | disposition home or self-care (01) ==
LOC: HO.LAB 13:00
PROVIDERS: PCP Internal Medicine; Visit Provider Advanced Practice Midwife
DX: Z01.419 Encounter for gynecological examination (general) (routine) without abnormal findings (principal); N89.8 Other specified noninflammatory disorders of vagina; Z20.2 Contact with and (suspected) exposure to infections with a predominantly sexual mode of transmission
CPT/HCPCS: 0352U; 87491; 87591; 99385

== ENCOUNTER 2024-07-16 15:43 | Outpatient (REF) | payer OTHER, SELFPAY | END 2024-07-16 15:44 | disposition home or self-care (01) | LOC: HO.LNP 15:43 | PROVIDERS: Visit Provider Advanced Practice Midwife | DX: Z01.419 Encounter for gynecological examination (general) (routine) without abnormal findings (principal); N89.8 Other specified noninflammatory disorders of vagina | CPT/HCPCS: 88175 ==

== ENCOUNTER 2024-10-01 12:52 | Outpatient (AMB) | payer OTHER, SELFPAY ==
--- NOTE | 2024-10-01 13:15 | A.OFFVIS_ITS ---
Vital Signs 10/01/24 13:16 Height 5 ft 5 in Weight 182 lb BMI 30.3 BP 112/62 Intake Visit Reasons: Mirena removal and insertion Lay Out Inspector Services: Lay Out Inspector Present Information Interpreted: clinical only Director Building: Director Building Present Allergies No Known Allergies [No Known Allergies*] Allergy (Verified 10/01/24 13:18) Medication List - Last Reconciled 10/01/24 by Laura Ruelas CNM levonorgestrel (Mirena) intrauterine HPI HPI Mirena removal and insertion: Details: Patient is here scheduled for a Mirena removal and insertion. However with review of the last visit noted that she had positive chlamydia diagnosed at that visit I prescribed the medication however the nurses were arm able to reach her despite several attempts and the patient also says she did not get the letter about her negative Pap smear. Patient did not know about the positive chlamydia she is tearful today as I have disclose this to her and done teaching around this and discussed how she and her partner could have acquired this. She says they have been together about a year. Discussed that it is quite possible that the infection could pre exist from previous relationships. Discussed that they both need treatment ideally at the same time, they both need to abstain from unprotected intercourse for least 3-4 weeks and she would need a test of cure to be done prior to scheduling removal and insertion of her IUD. Discussed the possible ways that her partner could be treated. Either at the [facility] the STD clinic or [facility] or [facility] or if he had his own doctor, she did not believe that he did and so discussed having both of them go to the [facility] office to obtain prescription for expedited treatment from the nurses. Explained this with the patient, after multiple calls back and forth to [facility], but then it developed that this plan would not be possible. patient has already left the office will attempt to reach the patient. I was able to reach her by phone and I apologized for the mixed message in confusion caused by this situation but that her partner would be best served by seeking chlamydia treatment either as his provider or any of the previously mentioned STD clinical options. [facility] Medical History No known health problems Social History Alcohol intake: never Patient Tobacco Use Status: Never used Tobacco Female Reproductive History Menstrual Age of Menarche: 12 control method: progestin IUCD Total pregnancies: 1 Full term: 1 Assessment & Plan Assessment & Plan (1) Chlamydia infection: Comment: Patient needs treatment as well as partner, and she needs negative test of cure before IUD is replaced.; pt hadnt checked phone or mail... informed and teaching doen 10/01/24- treating today, partner needs rx, kev 3-4 w , and r/s iud switchafter Code(s): A74.9 - Chlamydial infection, unspecified Category: Medical Plan Patient is here scheduled for a Mirena removal and insertion. However with review of the last visit noted that she had positive chlamydia diagnosed at that visit I prescribed the medication however the nurses were arm able to reach her despite several attempts and the patient also says she did not get the letter about her negative Pap smear. Patient did not know about the positive chlamydia she is tearful today as I have disclose this to her and done teaching around this and discussed how she and her partner could have acquired this. She says they have been together about a year. Discussed that it is quite possible that the infection could pre exist from previous relationships. Discussed that they both need treatment ideally at the same time, they both need to abstain from unprotected intercourse for least 3-4 weeks and she would need a test of cure to be done prior to scheduling removal and insertion of her IUD. Discussed the possible ways that her partner could be treated. Either at the [facility] the STD clinic or [facility] or [facility] or if he had his own doctor, she did not believe that he did and so discussed having both of them go to the [facility] office to obtain prescription for expedited treatment from the nurses. Explained this with the patient, after multiple calls back and forth to [facility], but then it developed that this plan would not be possible. patient has already left the office will attempt to reach the patient. I was able to reach her by phone and I apologized for the mixed message in confusion caused by this situation but that her partner would be best served by seeking chlamydia treatment either as his provider or any of the previously mentioned STD clinical options. pt needs kev for chlamydia about 4w then she may schedule mirena replacement... Medications: Refilled doxycycline hyclate 100 mg PO BID 14 tabs 1RF A74.9 - Chlamydial infection, unspecified Coding Level of Care Code Est Pt Level 3 (33997) Diagnoses Chlamydia infection A74.9 Time Spent (min) 45 Comment Teaching about the chlamydia and trying to arrange partner treatment, plan for Mirena...
[2024-10-01 13:16] VITALS: BP 112/62; BMI 30.3
== END 2024-10-01 14:01 | disposition home or self-care (01) ==
PROVIDERS: PCP Internal Medicine; Visit Provider Advanced Practice Midwife
DX: A74.9 Chlamydial infection, unspecified (principal)
CPT/HCPCS: 99213

== ENCOUNTER → 2024-10-01 12:52 | Outpatient (BNVA) | payer OTHER, SELFPAY | PROVIDERS: PCP Internal Medicine; Visit Provider Advanced Practice Midwife | DX: A74.9 Chlamydial infection, unspecified (principal) | CPT/HCPCS: 99212 ==

== ENCOUNTER 2024-11-12 10:42 | Outpatient (REF) | payer OTHER, SELFPAY ==
[2024-11-13 05:41] LABS: CT PCR NOT DETECTED (Not Detect.); NG PCR NOT DETECTED (Not Detect.)
[2024-11-13 09:11] LABS: Bacterial Vaginosis PCR NEGATIVE (Negative); Candida Group PCR DETECTED (Not Detect); Candida glab krusei PCR NOT DETECTED (Not Detect); Trichomonas vaginalis PCR NOT DETECTED (Not Detect)
== END 2024-11-12 10:43 | disposition home or self-care (01) ==
LOC: HO.LAB 10:42
PROVIDERS: PCP Internal Medicine; Visit Provider Advanced Practice Midwife
DX: A74.9 Chlamydial infection, unspecified (principal); N89.8 Other specified noninflammatory disorders of vagina; Z20.2 Contact with and (suspected) exposure to infections with a predominantly sexual mode of transmission; Z97.5 Presence of (intrauterine) contraceptive device
CPT/HCPCS: 81515; 87491; 87591; 99212

== ENCOUNTER 2024-11-12 10:42 | Outpatient (AMB) | payer OTHER, SELFPAY ==
--- NOTE | 2024-11-12 10:42 | A.OFFVIS_ITS ---
Vital Signs 11/12/24 10:48 Height 5 ft 5 in Weight 182 lb BMI 30.3 BP 114/64 Intake Visit Reasons: KEV Pacu Rn: Pacu Rn Present (Radha) Accompanied by: Self / Same As Patient Allergies No Known Allergies [No Known Allergies*] Allergy (Verified 11/12/24 10:47) Medication List - Last Reviewed 11/12/24 by Radha Simons MA doxycycline hyclate 100 mg PO BID levonorgestrel (Mirena) intrauterine Is last menstrual period known: No Post menopausal: No Patient : No HPI HPI KEV: Details: This is patient's 2nd scheduled visit for test of cure for chlamydia 1st time she came for the test of cure visit, developed that she had never responded to the telephone calls her other ways about reach from the nurses to inform her of the chlamydia and so she did not get treated. So this time she told her partner partner got medicine but she went to [place] and only took 2 days of the medicine. [facility] Medical History No known health problems Social History Alcohol intake: never Patient Tobacco Use Status: Never used Tobacco Female Reproductive History Menstrual Age of Menarche: 12 control method: progestin IUCD (Mirena) Total pregnancies: 1 Full term: 1 Date of last pap smear: 07/16/24 (negative pap smear) History of abnormal pap smear: No History of STI: Yes Physical Exam Other: Cervix parous with clear mucus today with Mirena strings easily visible. Re testing done for gonorrhea chlamydia trichomoniasis Radha and BV. External Female Exam: normal external appearance and normal appearance of the urethra Speculum Exam - Vagina: normal appearance of the vagina and normal vaginal discharge Speculum Exam - Cervix: normal appearance of the cervix and Cervical os closed Results Reviewed Results Reviewed: Name: Briana Rodrigez Age/Sex: 23/F : 2000 Unit#: [id number] Attend Dr: Laura Ruelas CNM Re07/16/24 Status: DEP REF Location: [facility] Disch: SPEC : [id number] RAUL: 07/16/24-UNK STATUS: COMP REQ : [id number] RECD: 07/16/24 [facility] DR: Laura Ruelas CNM COMP: 07/17/24 ENTERED: 07/16/24 [facility] DR: Sveta Ortiz MD ORDERED: CT NG by PCR QUERIES: CT NG Source: Vaginal Test Result Flag Reference CT PCR DETECTED A Not Detect. Detected results may be observed after successful antibiotic treatment due to target nucleic acids from residual non-viable chlamydia. As with many diagnostic tests, results from the Xpert CT/NG assay should be interpreted in conjunction with other laboratory and clinical data available to the clinician. Xpert CT/NG performance has not been evaluated in patients less than 14 years of age. The assay should not be used for the evaluation of suspected sexual abuse or for other medico-legal indications. Additional testing is recommended in any circumstance when false positive or false negative results could lead to adverse medical, social or psychological consequences. These results must be reported by the ordering clini karel or clinical facility to the [facility] as required by state law. NG PCR NOT DETECTED Not Detect. A not detected test result does not exclude the possibility of infection because test results can be affected by improper specimen collection, concurrent antibiotic therapy, or the number of organisms in the specimen which may be below the sensitivity of the test. As with many diagnostic tests, results from the Xpert CT/NG assay should be interpreted in conjunction with other laboratory and clinical data available to the clinician. Xpert CT/NG performance has not been evaluated in patients less than 14 years of age. The assay should not be used for the evaluation of suspected sexual abuse or for other medico-legal indications. Additional testing is recommended in any circumstance when false positive or false negative results could lead to adverse medical, social or psychological consequences. Name: Mijares BelindaBriana Age/Sex: 23/F Attending: Laura Ruelas CNM : 2000 Submitted by: Laura Ruelas CNM Copies to: MR #: [id number] Status: DEP REF Collected: 07/16/24 Location: [facility] Received: 07/17/24 Interpretation Satisfactory for evaluation. Negative for intraepithelial lesion or malignancy. Mild inflammation. Clinical Information LMP: No menses (IUD) Previous PAP test: No previous PAP Material Received ThinPrep-Cervical Electronically Signed By: MICHAEL Albert (ASCP) 07/21/24 1026 As of June 25, 2024, the technical services to include automated prescreening performed by the ThinPrep Imaging System, PAP screening and HPV testing will be performed at [facility] (CLIA #[id number]), [address] [place] [address]. Testing for HPV was performed using the Lali SHYLA 6800 system. The presence of HPV in the female genital tract is associated with a number of diseases, including cervical carcinoma. The HPV DNA high risk pool tests for HPV 31, 33, 35, 39, 45, 51, 52, 56, 58, 59, 66 and 68. The testing for HPV 16 and 18 genotypes has also been performed. A positive result indicates detection of nucleic acid sequences from one or more subtypes, whereas a negative result indicates such sequences were not detected. All professional services are performed by [facility] ([address] [place], [place] [id number]; ; CLIA #[id number]). The PAP Test is a screening procedure with the inherent possibility of both false negative and false positive results. Results should be interpreted in the context of historic and current clinical findings. Reliability of the PAP Test is enhanced by performing the test on a regular repetitive basis. Patient: Briana Rodrigez Age/Sex: 23/F MR#: [id number] Page 1 of 1 END OF REPORT Yeast also showed in previous testing patient did not go for blood work for HIV hep B hep C and syphilis that was ordered in July she said she would like to go today 11/12/24. Assessment & Plan Assessment & Plan (1) Cervical cancer screening: Comment: 07/16/24 pap is negative. Code(s): Z12.4 - Encounter for screening for malignant neoplasm of cervix Category: Medical (2) Presence of 52 mg levonorgestrel-releasing intrauterine device (IUD): Code(s): Z97.5 - Presence of (intrauterine) contraceptive device Category: Social Hx (3) Chlamydia infection: Comment: Patient needs treatment as well as partner, and she needs negative test of cure before IUD is replaced.; pt hadnt checked phone or mail... informed and teaching doen 10/01/24- treating today, partner needs rx, kev 3-4 w , and r/s iud switchafter; Patient seen for test of cure 11/12/2024 patient had not completed the medication only took 2 days' worth. Retesting done today and patient has new script sent to her [facility] pharmacy and I recommend she take all 7 days avoid any unprotected sex going forward at all. If this test is negative today we can consider rescheduling her IUD replacement after a couple of weeks. Code(s): A74.9 - Chlamydial infection, unspecified Category: Medical Plan Since patient only took 2 days of the medication, (doxy Cyclen for chlamydia that was diagnosed in July but patient did not respond to efforts to reach out), I re-treat in her today with the medicine I sent a prescription during the visit and I instructed her to take it twice a day for full 7 days. In addition she never went for the blood work for STI testing in July either and she does want to go so those orders are still in the system so she today again. We will call her for anything positive. If the testing for the chlamydia is negative then we can in the future go ahead and look at scheduling her Mirena replacement she had wanted it to be replaced as it has been 6 years and she had resumed having cramping that reminded her of periods. I recommended no unsafe sex after this visit regardless. Medications: Refilled doxycycline hyclate 100 mg PO BID 14 tabs 1RF A74.9 - Chlamydial infection, unspecified Coding Level of Care Code Est Pt Level 3 (06186) Diagnoses Cervical cancer screening Z12.4 Presence of 52 mg levonorgestrel-releasing intrauterine device (IUD) Z97.5 Chlamydia infection A74.9
[2024-11-12 10:48] VITALS: BP 114/64; BMI 30.3
== END 2024-11-12 11:31 | disposition home or self-care (01) ==
LOC: HO.HWSM 10:42
PROVIDERS: PCP Internal Medicine; Visit Provider Advanced Practice Midwife
DX: Z12.4 Encounter for screening for malignant neoplasm of cervix (principal); Z97.5 Presence of (intrauterine) contraceptive device; A74.9 Chlamydial infection, unspecified
CPT/HCPCS: 99213

== ENCOUNTER 2025-02-18 01:48 | Emergency (ER) | payer OTHER, SELFPAY ==
[2025-02-18 02:04] VITALS: BP 111/69; PULSE 95; RESP 18; TEMP 36.8; O2SAT 97; BMI 30.5
[2025-02-18] MEDS: Ibuprofen 600 MG TABLET PO (02:16)
--- NOTE | 2025-02-18 07:09 | ED.DENTAL ---
HPI - Dental/Oral General Chief complaint: Dental/Oral Stated complaint: tooth pain Time Seen by Provider: 02/18/25 06:57 Source: patient Mode of arrival: ambulatory Limitations: no limitations History of Present Illness HPI Narrative: This is 24 years old female presented to the emergency department with a chief complaint of right tooth pain for about 2 days denies any fever chills vomiting. She has a brace she has a an appointment with a dentist on February 27 . No difficult to swallow no difficulty with phonation MD Complaint: tooth pain Onset (ago): day(s) (2) Duration: constant Severity: moderate Severity scale (1-10): 7 Relieving factors: nothing Exacerbating factors: nothing Context: history of dental caries Related Data Home Medications ?Medication ?Instructions ?Recorded ?Confirmed levonorgestrel 21 mcg/24 hr (up to intrauterine 07/16/24 11/12/24 8 years) 52 mg intrauterine device (Mirena) Previous Rx's ?Medication ?Instructions ?Recorded doxycycline hyclate 100 mg tablet 100 mg PO BID #14 tabs 11/12/24 amoxicillin 500 mg capsule 500 mg PO TID #20 caps 02/18/25 ibuprofen 800 mg tablet 800 mg PO Q8H PRN pain #20 tabs 02/18/25 Allergies Allergy/AdvReac Type Severity Reaction Status Date / Time No Known Allergies (No Known Allergy Verified 02/18/25 02:08 Allergies*) Review of Systems Constitutional: Constitutional: Reports no additional constitutional complaints ENT: Reports system reviewed and no additional complaints, except as documented Gastrointestinal: Gastrointestinal: Reports no additional gastrointestinal complaints PMFSH Past Medical History Medical History No known health problems Social History Social History Alcohol intake: never Patient Tobacco Use Status: Never used Tobacco Advance Directives: No Do you have a plan to hurt others: No Plan Physical Exam Vital Signs: Vital Signs: Last Vital Signs Temp 99.1 F 02/18/25 07:25 Pulse 89 02/18/25 07:25 Resp 14 02/18/25 07:25 BP 103/56 L 02/18/25 07:25 Pulse Ox 99 02/18/25 07:25 O2 Del Method Room Air 02/18/25 07:25 BMI result Body Mass Index 30.5 On examination she looks well she is not toxic-appearing Const: General: cooperative Nutritional Appearance: well nourished Orientation/consciousness: patient oriented x3 Limitations: no limitations HEENT: Head: Yes normal to inspection General nose exam: Normal external nose present Face and sinus: Yes other (She is able to open the mouth wide) Mouth: Normal oral and palatal mucosa present Teeth and gingiva: other (Brace on, she has decay in the 2nd and 3rd tooth. Uvula is midline ) Throat: Yes posterior oropharynx normal, Yes uvula midline, No uvula laterally displaced, No uvular edema and Yes other Neck: Neck: Yes normal visual inspection Chest: Chest palpation & inspection: normal inspection of the chest Resp: Effort & Inspection: normal respiratory effort Auscultation: clear to auscultation bilaterally Cardio: Jugular venous distension: no JVD Rate: regular rate Rhythm: regular rhythm GI: Inspection: Yes normal to inspection Palpation (GI): Soft to palpation, not firm and nontender Auscultation: normal bowel sounds Neuro: General: patient oriented x3 Medications Administered Discontinued Medications Generic Name Dose Route Start Last Admin Trade Name Freq PRN Reason Stop Dose Admin Amoxicillin 500 mg 02/18/25 07:09 02/18/25 07:23 Amoxicillin 500 Mg Capsule PO 02/18/25 07:10 500 mg ONCE ONE Administration Ibuprofen 600 mg 02/18/25 02:12 02/18/25 02:16 Ibuprofen 600 Mg Tablet PO 02/18/25 02:13 600 mg ONCE ONE Administration Medical Decision Making Medical Decision Making [facility] Narrative: Patient is here with tooth pain, no trismus uvula midline open the mouth wide open we will provide analgesia p.o. antibiotic discharge with a follow-up with a dentist Differential Diagnosis Differential Diagnoses: The differential diagnosis associated with the presentation includes Dental pain and secondary to decay, no evidence of abscess no trismus Admission/Observation Consideration of admission/observation: Escalation of care including admission/observation considered Prescription Management I considered prescription management with: Pain Medication and Antibiotic Discharge Plan Discharge Clinical Impression: Pain in tooth Patient Disposition: Home, Self-Care Instructions: Toothache (ED) Additional Instructions: Follow-up with your dentist as scheduled return to the emergency room if worse take antibiotic as directed and ibuprofen 800 3 times a day Prescriptions: New amoxicillin 500 mg capsule 500 mg PO TID Qty: 20 0RF ibuprofen 800 mg tablet 800 mg PO Q8H PRN (Reason: pain) Qty: 20 0RF No Action Mirena 21 mcg/24 hr (8 yrs) 52 mg intrauterine device intrauterine doxycycline hyclate 100 mg tablet 100 mg PO BID Qty: 14 1RF Interventions: ED Discharge Assessment Last Done: 02/18/25 07:25 Discharge Date/Time: 02/18/25 07:26 Print Language: Maltese
[2025-02-18] MEDS: Amoxicillin 500 MG CAPSULE PO (07:23)
[2025-02-18 07:25] VITALS: BP 103/56; PULSE 89; RESP 14; TEMP 37.3; O2SAT 99
== END 2025-02-18 07:26 | disposition home or self-care (01) ==
PROVIDERS: Emergency Provider Emergency Medicine; PCP Internal Medicine
DX: K08.89 Other specified disorders of teeth and supporting structures (principal)
CPT/HCPCS: 99283